=== PATIENT | female | born 1935 | race Caucasian/White ===

== ENCOUNTER → 2021-04-30 | Outpatient (CLI) | payer OTHER | LOC: RAD 12:34 | DX: J44.9 Chronic obstructive pulmonary disease, unspecified (principal) | CPT/HCPCS: 71046 ==

== ENCOUNTER → 2021-08-31 | Outpatient (CLI) | payer OTHER | LOC: KOH-I 15:35 | DX: R10.13 Epigastric pain (principal); J98.11 Atelectasis | CPT/HCPCS: 74150 ==